=== PATIENT | female | born 1995 | race Hispanic/Latino ===

== ENCOUNTER 2021-08-22 19:25 | Inpatient (IN) | payer BC ==
[2021-08-22 21:36] LABS: Hematocrit 45.6 % (30.3-42.9); Hemoglobin 15.4 gm/dl (10.1-14.3); Mean Corpuscular HGB Conc 34 % (30-34); Mean Corpuscular Volume 94 fl (79-97); Platelet Count 265 K/mm3 (140-440); Red Blood Count 4.86 M/mm3 (3.65-5.03); Red Cell Distribution Width 14.2 % (13.2-15.2)
[2021-08-22 21:51] LABS: Alanine Aminotransferase 23 units/L (7-56); Albumin 4.6 g/dL (3.9-5); BUN/Creatinine Ratio 13; Blood Urea Nitrogen 10 mg/dL (7-17); Calcium 9.9 mg/dL (8.4-10.2); Hemolysis Index 7
[2021-08-22] MEDS ORDERED: dexAMETHasone 4 MG/ML VIAL IV ONE (22:12)
[2021-08-22] MEDS ORDERED: ONDANSETRON 4 MG/2 ML INJ IV ONE (22:12)
[2021-08-22] MEDS ORDERED: FAMOTIDINE 20 MG/2 ML INJ IV ONE (22:12)
[2021-08-22] MEDS ORDERED: MORPHINE 4 MG/1 ML INJ IV ONE (22:12)
[2021-08-22] MEDS ORDERED: SODIUM CHLORIDE 0.9% 1000 ML 1,000 ML IV ONE (22:13)
[2021-08-22 22:17] LABS: Basophils % (Manual) 0 % (0.0-1.8); Eosinophils % (Manual) 0 % (0.0-4.3); RBC Morphology Normal; Total Cells Counted 100
--- NOTE | 2021-08-22 23:18 | Cat Scan Report ---
CT ABDOMEN AND PELVIS WITH CONTRAST INDICATION / CLINICAL INFORMATION: abdoinal pain per pt, having R sided abdominal pain with emesis an d diarrhea. TECHNIQUE: Axial CT images were obtained through the abdomen and pelvis after IV contrast. All CT sc ans at this location are performed using CT dose reduction for ALARA by means of automated exposure c ontrol. COMPARISON: None available. FINDINGS: LOWER CHEST: No significant abnormality. LIVER: No significant abnormality. GALLBLADDER: No significant abnormality. BILE DUCTS: No significant abnormality. PANCREAS: No significant abnormality. SPLEEN: No significant abnormality. ADRENALS: No significant abnormality. RIGHT KIDNEY / URETER: No significant abnormality. LEFT KIDNEY / URETER: No significant abnormality. STOMACH / SMALL BOWEL: No significant abnormality. COLON: Submucosal fat at the right and transverse colons can be associated with chronic inflammation. Mild adjacent inflammation. APPENDIX: Generalized. PERITONEUM: Mild fluid adjacent to the right ovary. No free air. No fluid collection. LYMPH NODES: No significant adenopathy. VASCULAR STRUCTURES: No significant abnormality. URINARY BLADDER: No significant abnormality. REPRODUCTIVE ORGANS: No significant abnormality. ADDITIONAL FINDINGS: None. SKELETAL SYSTEM: No significant abnormality. IMPRESSION: 1. Minute submucosal fat at the right and transverse colons can be associated with chronic colonic in flammatory change. Mild adjacent inflammation suggests superimposed inflammation. 2. Mild fluid adjacent to the right ovary. 3. Appendix not visualized. Signer Name: Orlando Montemayor MD Signed: 08/22/2021 11:14 PM Workstation Name: [id number]
[2021-08-22 23:58] LABS: Bilirubin,Urine NEG (Negative); Blood,Urine MOD (Negative); Color,Urine Yellow (Yellow); Mucus,Urine 2+ /HPF; Protein,Urine <15 mg/dL mg/dL (Negative); Urobilinogen,Urine < 2.0 mg/dL (<2.0)
[2021-08-23 00:46] LABS: Hematocrit 42.3 % (30.3-42.9); Hemoglobin 13.7 gm/dl (10.1-14.3); Mean Corpuscular HGB Conc 33 % (30-34); Mean Corpuscular Volume 95 fl (79-97); Platelet Count 212 K/mm3 (140-440); Red Blood Count 4.45 M/mm3 (3.65-5.03); Red Cell Distribution Width 13.8 % (13.2-15.2)
[2021-08-23] MEDS ORDERED: PIPERACILLIN/TAZOBACTAM 3.375 3.375 GM/50 ML BAG IV ONE (02:38)
--- NOTE | 2021-08-23 02:52 | Emergency Department Report ---
ED Abdominal Pain HPI - General Chief Complaint: Abdominal Pain Stated Complaint: SEVERE ABDOMINAL PAIN, N/V Time Seen by Provider: 08/22/21 22:09 Source: patient Mode of arrival: Ambulatory Limitations: No Limitations - History of Present Illness Initial Comments: 26-year-old female with no significant past medical history reports to the ER with complaints of abdominal pain near her umbilicus that started yesterday around 5:00 PM along with vomiting and diarrhea. Patient also states to have allergic reaction to unknown source that caused her to sneeze and have hives, patient took some Benadryl. No shortness of breath or chest pain reported. No known drug allergies. Patient is actively vomiting during initial assessment. Patient reports no other acute signs and symptoms at this moment. Patient reports her her pain is 10 out of 10. Patient denies blood in her diarrhea. Patient reports that she still has her gallbladder and appendix. Severity scale (0 -10): 8 - Related Data Allergies Allergy/AdvReac Type Severity Reaction Status Date / Time No Known Allergies Allergy Verified 08/22/21 21:10 ED Review of Systems ROS: Stated complaint: SEVERE ABDOMINAL PAIN, N/V Other details as noted in HPI Constitutional: denies: chills, fever Eyes: denies: eye pain, eye discharge, vision change ENT: denies: ear pain, throat pain Respiratory: denies: cough, shortness of breath, wheezing Cardiovascular: denies: chest pain, palpitations Endocrine: no symptoms reported Gastrointestinal: abdominal pain, nausea, vomiting, diarrhea. denies: hematemesis, melena Genitourinary: denies: urgency, dysuria, discharge Musculoskeletal: denies: back pain, joint swelling, arthralgia Skin: rash. denies: lesions Neurological: denies: headache, weakness, paresthesias Psychiatric: denies: anxiety, depression Hematological/Lymphatic: denies: easy bleeding, easy bruising ED Past Medical Hx - Past Medical History Previous Medical History?: No ED Physical Exam - General Limitations: No Limitations General appearance: alert, in no apparent distress - Head Head exam: Present: atraumatic, normocephalic - Eye Eye exam: Present: normal appearance - ENT ENT exam: Present: mucous membranes moist - Neck Neck exam: Present: normal inspection - Respiratory Respiratory exam: Present: normal lung sounds bilaterally. Absent: respiratory distress - Cardiovascular Cardiovascular Exam: Present: regular rate, normal rhythm. Absent: systolic murmur, diastolic murmur, rubs, gallop - GI/Abdominal GI/Abdominal exam: Present: soft, tenderness, normal bowel sounds. Absent: rebound, rigid, organomegaly, mass, pulsatile mass - Expanded GI/Abdominal Exam Expanded GI/Abdominal exam: Absent: Page's sign - Extremities Exam Extremities exam: Present: normal inspection - Back Exam Back exam: Present: normal inspection - Neurological Exam Neurological exam: Present: alert, oriented X3 - Psychiatric Psychiatric exam: Present: normal affect, normal mood - Skin Skin exam: Present: warm, dry, intact, normal color. Absent: rash ED Course Vital Signs 08/22/21 08/23/21 08/23/21 19:52 02:32 02:36 Temperature 98.0 F Pulse Rate 88 80 Respiratory 18 14 Rate Blood Pressure 141/89 Blood Pressure 114/62 [Left] O2 Sat by Pulse 98 93 100 Oximetry 08/23/21 08/23/21 08/23/21 03:00 03:30 04:00 Temperature Pulse Rate Respiratory Rate Blood Pressure 118/64 111/62 98/53 Blood Pressure [Left] O2 Sat by Pulse 96 97 97 Oximetry - Consultations Consultation #1: 08/23/21 02:[address] SALAZAR, for hospital admission for bacteremia with unknown source. ED Medical Decision Making - Lab Data Result diagrams: 08/23/21 00:20 08/22/21 21:13 - Radiology Data CT abdominal pelvis IMPRESSION: 1. Minute submucosal fat at the right and transverse colons can be associated with chronic colonic inflammatory change. Mild adjacent inflammation suggests superimposed inflammation. 2. Mild fluid adjacent to the right ovary. 3. Appendix not visualized. - Medical Decision Making 18-year-old female no significant past medical history reports to ER with abdominal pain any nausea vomiting and diarrhea. Physical exam shows right lower quadrant abdominal pain tenderness with no rebound tenderness noted right upper quadrant pain tenderness with no Page's signs noted. No epigastric pain noted. Initial WBC was 27 repeat was collected with a new result of 21.6 , blood cultures were collected CMP with no acute process noted. UA negative for no acute process, lipase negative Ultrasoundnegative no acute process noted. CT abdomen pelvis with contrast IMPRESSION: 1. Minute submucosal fat at the right and transverse colons can be associated with chronic colonic inflammatory change. Mild adjacent inflammation suggests superimposed inflammation. 2. Mild fluid adjacent to the right ovary. 3. Appendix not visualized. Paged [facility] and spoke with Dr. SALAZAR around 2:32 AM, for admission to hospital due to unknown source of bacteremia. Orders for Zosyn broad-spectrum antibiotics were ordered to be started on patient. Patient made aware of her need for admission sent to the hospital due to her elevated white count with unknown source of infection. Patient agrees with plan of care and verbalizes understanding. This case was discussed with Dr. Wilson, ER attending.. Vital Signs 08/22/21 08/23/21 08/23/21 19:52 02:32 02:36 Temperature 98.0 F Pulse Rate 88 80 Respiratory 18 14 Rate Blood Pressure 141/89 Blood Pressure 114/62 [Left] O2 Sat by Pulse 98 93 100 Oximetry 08/23/21 08/23/21 08/23/21 03:00 03:30 04:00 Temperature Pulse Rate Respiratory Rate Blood Pressure 118/64 111/62 98/53 Blood Pressure [Left] O2 Sat by Pulse 96 97 97 Oximetry Lab Results 08/22/21 08/22/21 08/22/21 Range/Units 21:13 21:13 21:13 WBC 27.0 H (4.5-11.0) K/mm3 RBC 4.86 (3.65-5.03) M/mm3 Hgb 15.4 H (10.1-14.3) gm/dl Hct 45.6 H (30.3-42.9) % MCV 94 (79-97) fl MCH 32 (28-32) pg MCHC 34 (30-34) % RDW 14.2 (13.2-15.2) % Plt Count 265 (140-440) K/mm3 Add Manual Diff Complete Total Counted 100 Seg Neutrophils % Seg Neuts % (Manual) 81.0 H (40.0-70.0) % Band Neutrophils % 0 % Lymphocytes % (Manual) 13.0 L (13.4-35.0) % Reactive Lymphs % (Man) 0 % Monocytes % (Manual) 6.0 (0.0-7.3) % Eosinophils % (Manual) 0 (0.0-4.3) % Basophils % (Manual) 0 (0.0-1.8) % Metamyelocytes % 0 % Myelocytes % 0 % Promyelocytes % 0 % Blast Cells % 0 % Nucleated RBC % Not Reportable Seg Neutrophils # Man 21.9 H (1.8-7.7) K/mm3 Band Neutrophils # 0.0 K/mm3 Lymphocytes # (Manual) 3.5 (1.2-5.4) K/mm3 Abs React Lymphs (Man) 0.0 K/mm3 Monocytes # (Manual) 1.6 H (0.0-0.8) K/mm3 Eosinophils # (Manual) 0.0 (0.0-0.4) K/mm3 Basophils # (Manual) 0.0 (0.0-0.1) K/mm3 Metamyelocytes # 0.0 K/mm3 Myelocytes # 0.0 K/mm3 Promyelocytes # 0.0 K/mm3 Blast Cells # 0.0 K/mm3 WBC Morphology Not Reportable Hypersegmented Neuts Not Reportable Hyposegmented Neuts Not Reportable Hypogranular Neuts Not Reportable Smudge Cells Not Reportable Toxic Granulation Not Reportable Toxic Vacuolation Not Reportable Dohle Bodies Not Reportable Pelger-Huet Anomaly Not Reportable Wilberto Rods Not Reportable Platelet Estimate Not Reportable Clumped Platelets Not Reportable Plt Clumps, EDTA Not Reportable Large Platelets Not Reportable Giant Platelets Not Reportable Platelet Satelliting Not Reportable Plt Morphology Comment Not Reportable RBC Morphology Normal Dimorphic RBCs Not Reportable Polychromasia Not Reportable Hypochromasia Not Reportable Poikilocytosis Not Reportable Anisocytosis Not Reportable Microcytosis Not Reportable Macrocytosis Not Reportable Spherocytes Not Reportable Pappenheimer Bodies Not Reportable Sickle Cells Not Reportable Target Cells Not Reportable Tear Drop Cells Not Reportable Ovalocytes Not Reportable Helmet Cells Not Reportable [place] Bodies Not Reportable [place] Rings Not Reportable [place] Cells Not Reportable Bite Cells Not Reportable Crenated Cell Not Reportable Elliptocytes Not Reportable Acanthocytes (Spur) Not Reportable Rouleaux Not Reportable Hemoglobin C Crystals Not Reportable Schistocytes Not Reportable Malaria parasites Not Reportable Gregor Bodies Not Reportable Hem Pathologist Commnt No Sodium 143 (137-145) mmol/L Potassium 4.1 (3.6-5.0) mmol/L Chloride 106.9 (98-107) mmol/L Carbon Dioxide 20 L (22-30) mmol/L Anion Gap 20 mmol/L BUN 10 (7-17) mg/dL Creatinine 0.8 (0.6-1.2) mg/dL Estimated GFR > 60 ml/min BUN/Creatinine Ratio 13 % Glucose 109 H (65-100) mg/dL Calcium 9.9 (8.4-10.2) mg/dL Total Bilirubin 0.50 (0.1-1.2) mg/dL AST 19 (5-40) units/L ALT 23 (7-56) units/L Alkaline Phosphatase 82 (35-129) units/L Total Protein 7.6 (6.3-8.2) g/dL Albumin 4.6 (3.9-5) g/dL Albumin/Globulin Ratio 1.5 % Lipase (13-60) units/L HCG, Qual Negative (Negative) Urine Color (Yellow) Urine Turbidity (Clear) Urine pH (5.0-7.0) Ur Specific [place] (1.003-1.030) Urine Protein (Negative) mg/dL Urine Glucose (UA) (Negative) mg/dL Urine Ketones (Negative) mg/dL Urine Blood (Negative) Urine Nitrite (Negative) Urine Bilirubin (Negative) Urine Urobilinogen (<2.0) mg/dL Ur Leukocyte Esterase (Negative) Urine WBC (Auto) (0.0-6.0) /HPF Urine RBC (Auto) (0.0-6.0) /HPF U Epithel Cells (Auto) (0-13.0) /HPF Urine Mucus /HPF 08/22/21 08/22/21 08/23/21 Range/Units 21:13 23:40 00:20 WBC (4.5-11.0) K/mm3 RBC (3.65-5.03) M/mm3 Hgb (10.1-14.3) gm/dl Hct (30.3-42.9) % MCV (79-97) fl MCH (28-32) pg MCHC (30-34) % RDW (13.2-15.2) % Plt Count (140-440) K/mm3 Add Manual Diff Total Counted Seg Neutrophils % Seg Neuts % (Manual) (40.0-70.0) % Band Neutrophils % % Lymphocytes % (Manual) (13.4-35.0) % Reactive Lymphs % (Man) % Monocytes % (Manual) (0.0-7.3) % Eosinophils % (Manual) (0.0-4.3) % Basophils % (Manual) (0.0-1.8) % Metamyelocytes % % Myelocytes % % Promyelocytes % % Blast Cells % % Nucleated RBC % Seg Neutrophils # Man (1.8-7.7) K/mm3 Band Neutrophils # K/mm3 Lymphocytes # (Manual) (1.2-5.4) K/mm3 Abs React Lymphs (Man) K/mm3 Monocytes # (Manual) (0.0-0.8) K/mm3 Eosinophils # (Manual) (0.0-0.4) K/mm3 Basophils # (Manual) (0.0-0.1) K/mm3 Metamyelocytes # K/mm3 Myelocytes # K/mm3 Promyelocytes # K/mm3 Blast Cells # K/mm3 WBC Morphology Hypersegmented Neuts Hyposegmented Neuts Hypogranular Neuts Smudge Cells Toxic Granulation Toxic Vacuolation Dohle Bodies Pelger-Huet Anomaly Wilberto Rods Platelet Estimate Clumped Platelets Plt Clumps, EDTA Large Platelets Giant Platelets Platelet Satelliting Plt Morphology Comment RBC Morphology Dimorphic RBCs Polychromasia Hypochromasia Poikilocytosis Anisocytosis Microcytosis Macrocytosis Spherocytes Pappenheimer Bodies Sickle Cells Target Cells Tear Drop Cells Ovalocytes Helmet Cells [place]err[place] Bodies [place] Rings Charlie Cells Bite Cells Crenated Cell Elliptocytes Acanthocytes (Spur) Rouleaux Hemoglobin C Crystals Schistocytes Malaria parasites Gregor Bodies Hem Pathologist Commnt Sodium (137-145) mmol/L Potassium (3.6-5.0) mmol/L Chloride (98-107) mmol/L Carbon Dioxide (22-30) mmol/L Anion Gap mmol/L BUN (7-17) mg/dL Creatinine (0.6-1.2) mg/dL Estimated GFR ml/min BUN/Creatinine Ratio % Glucose (65-100) mg/dL Calcium (8.4-10.2) mg/dL Total Bilirubin (0.1-1.2) mg/dL AST (5-40) units/L ALT (7-56) units/L Alkaline Phosphatase (35-129) units/L Total Protein (6.3-8.2) g/dL Albumin (3.9-5) g/dL Albumin/Globulin Ratio % Lipase 23 28 (13-60) units/L HCG, Qual (Negative) Urine Color Yellow (Yellow) Urine Turbidity Clear (Clear) Urine pH 6.0 (5.0-7.0) Ur Specific [place] 1.060 H (1.003-1.030) Urine Protein <15 mg/dl (Negative) mg/dL Urine Glucose (UA) Neg (Negative) mg/dL Urine Ketones 20 (Negative) mg/dL Urine Blood Mod (Negative) Urine Nitrite Neg (Negative) Urine Bilirubin Neg (Negative) Urine Urobilinogen < 2.0 (<2.0) mg/dL Ur Leukocyte Esterase Neg (Negative) Urine WBC (Auto) 1.0 (0.0-6.0) /HPF Urine RBC (Auto) 1.0 (0.0-6.0) /HPF U Epithel Cells (Auto) 2.0 (0-13.0) /HPF Urine Mucus 2+ /HPF /15/ Range/Units 00:20 WBC 21.6 H (4.5-11.0) K/mm3 RBC 4.45 (3.65-5.03) M/mm3 Hgb 13.7 (10.1-14.3) gm/dl Hct 42.3 (30.3-42.9) % MCV 95 (79-97) fl MCH 31 (28-32) pg MCHC 33 (30-34) % RDW 13.8 (13.2-15.2) % Plt Count 212 (140-440) K/mm3 Add Manual Diff Complete Total Counted 100 Seg Neutrophils % [place] Seg Neuts % (Manual) 92.0 H (40.0-70.0) % Band Neutrophils % 0 % Lymphocytes % (Manual) 5.0 L (13.4-35.0) % Reactive Lymphs % (Man) 0 % Monocytes % (Manual) 3.0 (0.0-7.3) % Eosinophils % (Manual) 0 (0.0-4.3) % Basophils % (Manual) 0 (0.0-1.8) % Metamyelocytes % 0 % Myelocytes % 0 % Promyelocytes % 0 % Blast Cells % 0 % Nucleated RBC % Not Reportable Seg Neutrophils # Man 19.9 H (1.8-7.7) K/mm3 Band Neutrophils # 0.0 K/mm3 Lymphocytes # (Manual) 1.1 L (1.2-5.4) K/mm3 Abs React Lymphs (Man) 0.0 K/mm3 Monocytes # (Manual) 0.6 (0.0-0.8) K/mm3 Eosinophils # (Manual) 0.0 (0.0-0.4) K/mm3 Basophils # (Manual) 0.0 (0.0-0.1) K/mm3 Metamyelocytes # 0.0 K/mm3 Myelocytes # 0.0 K/mm3 Promyelocytes # 0.0 K/mm3 Blast Cells # 0.0 K/mm3 WBC Morphology Not Reportable Hypersegmented Neuts Not Reportable Hyposegmented Neuts Not Reportable Hypogranular Neuts Not Reportable Smudge Cells Not Reportable Toxic Granulation Not Reportable Toxic Vacuolation Not Reportable Dohle Bodies Not Reportable Pelger-Huet Anomaly Not Reportable Wilberto Rods Not Reportable Platelet Estimate Not Reportable Clumped Platelets Not Reportable Plt Clumps, EDTA Not Reportable Large Platelets Not Reportable Giant Platelets Not Reportable Platelet Satelliting Not Reportable Plt Morphology Comment Not Reportable RBC Morphology Normal Dimorphic RBCs Not Reportable Polychromasia Not Reportable Hypochromasia Not Reportable Poikilocytosis Not Reportable Anisocytosis Not Reportable Microcytosis Not Reportable Macrocytosis Not Reportable Spherocytes Not Reportable Pappenheimer Bodies Not Reportable Sickle Cells Not Reportable Target Cells Not Reportable Tear Drop Cells Not Reportable Ovalocytes Not Reportable Helmet Cells Not Reportable [place] Bodies Not Reportable [place] Rings Not Reportable [place] Cells Not Reportable Bite Cells Not Reportable Crenated Cell Not Reportable Elliptocytes Not Reportable Acanthocytes (Spur) Not Reportable Rouleaux Not Reportable Hemoglobin C Crystals Not Reportable Schistocytes Not Reportable Malaria parasites Not Reportable Gregor Bodies Not Reportable Hem Pathologist Commnt No Sodium (137-145) mmol/L Potassium (3.6-5.0) mmol/L Chloride (98-107) mmol/L Carbon Dioxide (22-30) mmol/L Anion Gap mmol/L BUN (7-17) mg/dL Creatinine (0.6-1.2) mg/dL Estimated GFR ml/min BUN/Creatinine Ratio % Glucose (65-100) mg/dL Calcium (8.4-10.2) mg/dL Total Bilirubin (0.1-1.2) mg/dL AST (5-40) units/L ALT (7-56) units/L Alkaline Phosphatase (35-129) units/L Total Protein (6.3-8.2) g/dL Albumin (3.9-5) g/dL Albumin/Globulin Ratio % Lipase (13-60) units/L HCG, Qual (Negative) Urine Color (Yellow) Urine Turbidity (Clear) Urine pH (5.0-7.0) Ur Specific [place] (1.003-1.030) Urine Protein (Negative) mg/dL Urine Glucose (UA) (Negative) mg/dL Urine Ketones (Negative) mg/dL Urine Blood (Negative) Urine Nitrite (Negative) Urine Bilirubin (Negative) Urine Urobilinogen (<2.0) mg/dL Ur Leukocyte Esterase (Negative) Urine WBC (Auto) (0.0-6.0) /HPF Urine RBC (Auto) (0.0-6.0) /HPF U Epithel Cells (Auto) (0-13.0) /HPF Urine Mucus /HPF Critical care attestation.: If time is entered above; I have spent that time in minutes in the direct care of this critically ill patient, excluding procedure time. ED Disposition Clinical Impression: Bacteremia Disposition: 09 ADMITTED INPATIENT Is pt being admited?: Yes Does the pt Need Aspirin: No Condition: Stable
--- NOTE | 2021-08-23 03:00 | Ultrasound Report ---
ULTRASOUND ABDOMEN, LIMITED INDICATION / CLINICAL INFORMATION: right upper pain with N/V. COMPARISON: None available. FINDINGS: PANCREAS: Visualized portion shows no significant abnormality. LIVER: No significant abnormality. Normal hepatopedal blood flow in the main portal vein. GALLBLADDER: No significant abnormality. BILE DUCTS: No significant abnormality. Common bile duct measures 2 mm. FREE FLUID: None. ADDITIONAL FINDINGS: None. IMPRESSION: Negative for gallstones or biliary dilatation. Signer Name: Orlando Montemayor MD Signed: 08/23/2021 2:55 AM Workstation Name: [id number]
[2021-08-23] MEDS ORDERED: MORPHINE 4 MG/1 ML INJ IV ONE (03:12)
[2021-08-23 03:19] LABS: Basophils % (Manual) 0 % (0.0-1.8); Eosinophils % (Manual) 0 % (0.0-4.3); RBC Morphology Normal; Total Cells Counted 100
[2021-08-23] MEDS ORDERED: ACETAMINOPHEN 325 MG TAB PO PRN (04:16)
[2021-08-23] MEDS ORDERED: ALBUTEROL 2.5 MG/3 ML NEBU IH PRN (04:16)
[2021-08-23] MEDS ORDERED: MORPHINE 4 MG/1 ML INJ IV PRN (04:16)
[2021-08-23] MEDS ORDERED: MORPHINE 2 MG/1 ML INJ IV PRN (04:16)
[2021-08-23] MEDS ORDERED: ONDANSETRON 4 MG/2 ML INJ IV PRN (04:16)
--- NOTE | 2021-08-23 04:23 | History and Physical Report ---
History of Present Illness Date of examination: 08/23/21 Date of admission: 08/23/21 Chief complaint: Abdominal pain History of present illness: 26-year-old female with no significant past medical history reports to the ER with complaints of abdominal pain near her umbilicus that started yesterday around 5:00 PM along with vomiting and diarrhea. Patient also states to have allergic reaction to unknown source that caused her to sneeze and have hives, patient took some Benadryl. No shortness of breath or chest pain reported. No known drug allergies. Patient is actively vomiting during initial assessment. Patient reports no other acute signs and symptoms at this moment. Patient reports her her pain is 10 out of 10. Patient denies blood in her diarrhea. Patient reports that she still has her gallbladder and appendix. In the emergency room patient is found to have WBC of 21.6, CT scan of the abdomen and pelvis showed 1. Minute submucosal fat at the right and transverse colons can be associated with chronic colonic inflammatory change. Mild adjacent inflammation suggests superimposed inflammation. 2. Mild fluid adjacent to the right ovary. 3. Appendix not visualized. Past History Past Surgical History: No surgical history Social history: no significant social history Family history: no significant family history Medications and Allergies Allergies Allergy/AdvReac Type Severity Reaction Status Date / Time No Known Allergies Allergy Verified 08/22/21 21:10 Review of Systems All systems: negative Gastrointestinal: abdominal pain, nausea, vomiting, diarrhea Exam - Constitutional Vitals: Temp Pulse Resp BP Pulse Ox 98.0 F 80 14 114/62 100 08/22/21 19:52 08/23/21 02:36 08/23/21 02:36 08/23/21 02:36 08/23/21 02:36 General appearance: Present: no acute distress, well-nourished - EENT Eyes: Present: PERRL ENT: hearing intact, clear oral mucosa - Neck Neck: Present: supple, normal ROM - Respiratory Respiratory effort: normal Respiratory: bilateral: CTA - Cardiovascular Heart Sounds: Present: S1 & S2. Absent: rub, click - Extremities Extremities: pulses symmetrical, No edema Peripheral Pulses: within normal limits - Abdominal General gastrointestinal: Present: soft, non-tender, non-distended, normal bowel sounds Female genitourinary: Present: normal - Integumentary Integumentary: Present: clear, warm, dry - Musculoskeletal Musculoskeletal: gait normal, strength equal bilaterally - Psychiatric Psychiatric: appropriate mood/affect, intact judgment & insight - Neurologic Neurologic: CNII-XII intact, moves all extremities Results - Labs CBC & Chem 7: 08/23/21 00:20 08/22/21 21:13 Labs: Laboratory Last Values WBC 21.6 K/mm3 (4.5-11.0) H 08/23/21 00:20 RBC 4.45 M/mm3 (3.65-5.03) 08/23/21 00:20 Hgb 13.7 gm/dl (10.1-14.3) 08/23/21 00:20 Hct 42.3 % (30.3-42.9) 08/23/21 00:20 MCV 95 fl (79-97) 08/23/21 00:20 MCH 31 pg (28-32) 08/23/21 00:20 MCHC 33 % (30-34) 08/23/21 00:20 RDW 13.8 % (13.2-15.2) 08/23/21 00:20 Plt Count 212 K/mm3 (140-440) 08/23/21 00:20 Add Manual Diff Complete 08/23/21 00:20 Total Counted 100 08/23/21 00:20 Seg Neutrophils % Bumper Operator 08/23/21 00:20 Seg Neuts % (Manual) 92.0 % (40.0-70.0) H 08/23/21 00:20 Band Neutrophils % 0 % 08/23/21 00:20 Lymphocytes % (Manual) 5.0 % (13.4-35.0) L 08/23/21 00:20 Reactive Lymphs % (Man) 0 % 08/23/21 00:20 Monocytes % (Manual) 3.0 % (0.0-7.3) 08/23/21 00:20 Eosinophils % (Manual) 0 % (0.0-4.3) 08/23/21 00:20 Basophils % (Manual) 0 % (0.0-1.8) 08/23/21 00:20 Metamyelocytes % 0 % 08/23/21 00:20 Myelocytes % 0 % 08/23/21 00:20 Promyelocytes % 0 % 08/23/21 00:20 Blast Cells % 0 % 08/23/21 00:20 Nucleated RBC % Not Reportable 08/23/21 00:20 Seg Neutrophils # Man 19.9 K/mm3 (1.8-7.7) H 08/23/21 00:20 Band Neutrophils # 0.0 K/mm3 08/23/21 00:20 Lymphocytes # (Manual) 1.1 K/mm3 (1.2-5.4) L 08/23/21 00:20 Abs React Lymphs (Man) 0.0 K/mm3 08/23/21 00:20 Monocytes # (Manual) 0.6 K/mm3 (0.0-0.8) 08/23/21 00:20 Eosinophils # (Manual) 0.0 K/mm3 (0.0-0.4) 08/23/21 00:20 Basophils # (Manual) 0.0 K/mm3 (0.0-0.1) 08/23/21 00:20 Metamyelocytes # 0.0 K/mm3 08/23/21 00:20 Myelocytes # 0.0 K/mm3 08/23/21 00:20 Promyelocytes # 0.0 K/mm3 08/23/21 00:20 Blast Cells # 0.0 K/mm3 08/23/21 00:20 WBC Morphology Not Reportable 08/23/21 00:20 Hypersegmented Neuts Not Reportable 08/23/21 00:20 Hyposegmented Neuts Not Reportable 08/23/21 00:20 Hypogranular Neuts Not Reportable 08/23/21 00:20 Smudge Cells Not Reportable 08/23/21 00:20 Toxic Granulation Not Reportable 08/23/21 00:20 Toxic Vacuolation Not Reportable 08/23/21 00:20 Dohle Bodies Not Reportable 08/23/21 00:20 Pelger-Huet Anomaly Not Reportable 08/23/21 00:20 Wilberto Rods Not Reportable 08/23/21 00:20 Platelet Estimate Not Reportable 08/23/21 00:20 Clumped Platelets Not Reportable 08/23/21 00:20 Plt Clumps, EDTA Not Reportable 08/23/21 00:20 Large Platelets Not Reportable 08/23/21 00:20 Giant Platelets Not Reportable 08/23/21 00:20 Platelet Satelliting Not Reportable 08/23/21 00:20 Plt Morphology Comment Not Reportable 08/23/21 00:20 RBC Morphology Normal 08/23/21 00:20 Dimorphic RBCs Not Reportable 08/23/21 00:20 Polychromasia Not Reportable 08/23/21 00:20 Hypochromasia Not Reportable 08/23/21 00:20 Poikilocytosis Not Reportable 08/23/21 00:20 Anisocytosis Not Reportable 08/23/21 00:20 Microcytosis Not Reportable 08/23/21 00:20 Macrocytosis Not Reportable 08/23/21 00:20 Spherocytes Not Reportable 08/23/21 00:20 Pappenheimer Bodies Not Reportable 08/23/21 00:20 Sickle Cells Not Reportable 08/23/21 00:20 Target Cells Not Reportable 08/23/21 00:20 Tear Drop Cells Not Reportable 08/23/21 00:20 Ovalocytes Not Reportable 08/23/21 00:20 Helmet Cells Not Reportable 08/23/21 00:20 Cerrato-Leando Bodies Not Reportable 08/23/21 00:20 [place] Rings Not Reportable 08/23/21 00:20 Charlie Cells Not Reportable 08/23/21 00:20 Bite Cells Not Reportable 08/23/21 00:20 Crenated Cell Not Reportable 08/23/21 00:20 Elliptocytes Not Reportable 08/23/21 00:20 Acanthocytes (Spur) Not Reportable 08/23/21 00:20 Rouleaux Not Reportable 08/23/21 00:20 Hemoglobin C Crystals Not Reportable 08/23/21 00:20 Schistocytes Not Reportable 08/23/21 00:20 Malaria parasites Not Reportable 08/23/21 00:20 Gregor Bodies Not Reportable 08/23/21 00:20 Hem Pathologist Commnt No 08/23/21 00:20 Sodium 143 mmol/L (137-145) 08/22/21 21:13 Potassium 4.1 mmol/L (3.6-5.0) 08/22/21 21:13 Chloride 106.9 mmol/L (98-107) 08/22/21 21:13 Carbon Dioxide 20 mmol/L (22-30) L 08/22/21 21:13 Anion Gap 20 mmol/L 08/22/21 21:13 BUN 10 mg/dL (7-17) 08/22/21 21:13 Creatinine 0.8 mg/dL (0.6-1.2) 08/22/21 21:13 Estimated GFR > 60 ml/min 08/22/21 21:13 BUN/Creatinine Ratio 13 % 08/22/21 21:13 Glucose 109 mg/dL (65-100) H 08/22/21 21:13 Calcium 9.9 mg/dL (8.4-10.2) 08/22/21 21:13 Total Bilirubin 0.50 mg/dL (0.1-1.2) 08/22/21 21:13 AST 19 units/L (5-40) 08/22/21 21:13 ALT 23 units/L (7-56) 08/22/21 21:13 Alkaline Phosphatase 82 units/L (35-129) 08/22/21 21:13 Total Protein 7.6 g/dL (6.3-8.2) 08/22/21 21:13 Albumin 4.6 g/dL (3.9-5) 08/22/21 21:13 Albumin/Globulin Ratio 1.5 % 08/22/21 21:13 Lipase 28 units/L (13-60) 08/23/21 00:20 HCG, Qual Negative (Negative) 08/22/21 21:13 Urine Color Yellow (Yellow) 08/22/21 23:40 Urine Turbidity Clear (Clear) 08/22/21 23:40 Urine pH 6.0 (5.0-7.0) 08/22/21 23:40 Ur Specific [place] 1.060 (1.003-1.030) H 08/22/21 23:40 Urine Protein <15 mg/dl mg/dL (Negative) 08/22/21 23:40 Urine Glucose (UA) Neg mg/dL (Negative) 08/22/21 23:40 Urine Ketones 20 mg/dL (Negative) 08/22/21 23:40 Urine Blood Mod (Negative) 08/22/21 23:40 Urine Nitrite Neg (Negative) 08/22/21 23:40 Urine Bilirubin Neg (Negative) 08/22/21 23:40 Urine Urobilinogen < 2.0 mg/dL (<2.0) 08/22/21 23:40 Ur Leukocyte Esterase Neg (Negative) 08/22/21 23:40 Urine WBC (Auto) 1.0 /HPF (0.0-6.0) 08/22/21 23:40 Urine RBC (Auto) 1.0 /HPF (0.0-6.0) 08/22/21 23:40 U Epithel Cells (Auto) 2.0 /HPF (0-13.0) 08/22/21 23:40 Urine Mucus 2+ /HPF 08/22/21 23:40 Microbiology: Microbiology 08/23/21 00:13 Peripheral/Venous Blood Culture - Preliminary Culture in Progress 08/23/21 00:20 Peripheral/Venous Blood Culture - Preliminary Culture in Progress - Imaging and Cardiology CT scan - abdomen: report reviewed Assessment and Plan VTE prophylaxis?: Chemical Plan of care discussed with patient/family: Yes - Patient Problems (1) Abdominal pain Current Visit: Yes Status: Acute Plan to address problem: Admit the patient to the medical floor. NPO. D5 half-normal saline at the rate of 100 cc/h. Zosyn 4.5 g IV every 8 hours. Will consult GI for evaluation. Recheck CBC BMP in the morning (2) Colitis Current Visit: Yes Status: Acute Plan to address problem: Zosyn 4.5 g IV every 8 hours. Will consult GI for evaluation. Recheck CBC BMP in the morning (3) Leukocytosis Current Visit: Yes Status: Acute Plan to address problem: Zosyn 4.5 g IV every 8 hours. We will do the blood culture. Recheck CBC BMP in the morning (4) Nausea & vomiting Current Visit: Yes Status: Acute Plan to address problem: NPO. D5 half-normal saline at the rate of 100 cc/h. Pepcid 20 mg IV every 12 hours. Zofran 4 mg IV every 6 hours as needed (5) DVT prophylaxis Current Visit: Yes Status: Acute Plan to address problem: Heparin 5000 units subcu every 12 hours for DVT prophylaxis. Pepcid 20 mg IV every 12 hours for GI prophylaxis. Patient is a full code
[2021-08-23] MEDS ORDERED: D5W/0.45% NACL 1,000 ML IV SCH (05:00)
[2021-08-23] MEDS ORDERED: HEPARIN 5,000 UNIT/1 ML VIAL SUB-Q SCH (10:00)
[2021-08-23] MEDS ORDERED: PIPERACIL/TAZOBACTA 4.5/NS 100 4.5 GM/100 ML VIAL IV SCH (10:00)
[2021-08-23] MEDS ORDERED: FAMOTIDINE 20 MG/2 ML INJ IV SCH (10:00)
[2021-08-23] MEDS: IPRATROPIUM/ALBUTEROL SULFATE 3 ML AMPUL.NEB IH SCH ×2 (10:31→16:13)
[2021-08-23 14:15] VITALS: BP 121/52
--- NOTE | 2021-08-23 15:39 | Gastroenterology Consultation ---
History of Present Illness - Reason for Consult Consult date: 08/23/21 abdominal pain, colitis Requesting physician: BRIANNE ARBOLEDA Past History Past Surgical History: No surgical history Social history: no significant social history Family history: no significant family history Medications and Allergies Allergies Allergy/AdvReac Type Severity Reaction Status Date / Time No Known Allergies Allergy Verified 08/22/21 21:10 Active Meds: Active Medications Acetaminophen (Acetaminophen 325 Mg Tab) 650 mg PO Q4H PRN PRN Reason: Pain MILD(1-3)/Fever >100.5/AMARO Last Admin: 08/23/21 08:09 Dose: 650 mg Albuterol (Albuterol 2.5 Mg/3 Ml Nebu) 2.5 mg IH Q3HRT PRN PRN Reason: Shortness Of Breath Albuterol/Ipratropium (Ipratropium/Albuterol Sulfate 3 Ml Ampul.Neb) 1 ampul IH Q6HRT [facility] Last Admin: 08/23/21 10:31 Dose: 1 ampul Famotidine (Famotidine 20 Mg/2 Ml Inj) 20 mg IV BID [facility] Last Admin: 08/23/21 11:02 Dose: 20 mg Heparin Sodium (Porcine) (Heparin 5,000 Unit/1 Ml Vial) 5,000 unit SUB-Q Q12HR [facility] Dextrose/Sodium Chloride (D5/0.45ns) 1,000 mls @ 100 mls/hr IV DIRECT [facility] Last Admin: 08/23/21 08:05 Dose: 100 mls/hr Piperacillin Sod/Tazobactam Sod (Zosyn/Ns 4.5gm/100ml) 4.5 gm in 100 mls @ 200 mls/hr IV Q8H [facility]; Protocol Last Admin: 08/23/21 11:00 Dose: 200 mls/hr Morphine Sulfate (Morphine 2 Mg/1 Ml Inj) 2 mg IV Q4H PRN PRN Reason: Pain, Moderate (4-6) Morphine Sulfate (Morphine 4 Mg/1 Ml Inj) 4 mg IV Q4H PRN PRN Reason: Pain , Severe (7-10) Ondansetron HCl (Ondansetron 4 Mg/2 Ml Inj) 4 mg IV Q8H PRN PRN Reason: Nausea And Vomiting Sodium Chloride (Sodium Chloride 0.9% 10 Ml Flush Syringe) 10 ml IV BID [facility] Sodium Chloride (Sodium Chloride 0.9% 10 Ml Flush Syringe) 10 ml IV PRN PRN PRN Reason: LINE FLUSH Exam - Constitutional Vital Signs: Temp Pulse Resp BP Pulse Ox 98.2 F 72 19 121/52 96 08/23/21 14:13 08/23/21 14:13 08/23/21 14:13 08/23/21 14:13 08/23/21 14:13 General appearance: no acute distress - Labs CBC & Chem 7: 08/23/21 00:20 08/22/21 21:13 Lab Results: Laboratory Results - last 24 hr 08/22/21 08/22/21 08/22/21 21:13 21:13 21:13 WBC 27.0 H RBC 4.86 Hgb 15.4 H Hct 45.6 H MCV 94 MCH 32 MCHC 34 RDW 14.2 Plt Count 265 Add Manual Diff Complete Total Counted 100 Seg Neutrophils % Seg Neuts % (Manual) 81.0 H Band Neutrophils % 0 Lymphocytes % (Manual) 13.0 L Reactive Lymphs % (Man) 0 Monocytes % (Manual) 6.0 Eosinophils % (Manual) 0 Basophils % (Manual) 0 Metamyelocytes % 0 Myelocytes % 0 Promyelocytes % 0 Blast Cells % 0 Nucleated RBC % Not Reportable Seg Neutrophils # Man 21.9 H Band Neutrophils # 0.0 Lymphocytes # (Manual) 3.5 Abs React Lymphs (Man) 0.0 Monocytes # (Manual) 1.6 H Eosinophils # (Manual) 0.0 Basophils # (Manual) 0.0 Metamyelocytes # 0.0 Myelocytes # 0.0 Promyelocytes # 0.0 Blast Cells # 0.0 WBC Morphology Not Reportable Hypersegmented Neuts Not Reportable Hyposegmented Neuts Not Reportable Hypogranular Neuts Not Reportable Smudge Cells Not Reportable Toxic Granulation Not Reportable Toxic Vacuolation Not Reportable Dohle Bodies Not Reportable Pelger-Huet Anomaly Not Reportable Wilberto Rods Not Reportable Platelet Estimate Not Reportable Clumped Platelets Not Reportable Plt Clumps, EDTA Not Reportable Large Platelets Not Reportable Giant Platelets Not Reportable Platelet Satelliting Not Reportable Plt Morphology Comment Not Reportable RBC Morphology Normal Dimorphic RBCs Not Reportable Polychromasia Not Reportable Hypochromasia Not Reportable Poikilocytosis Not Reportable Anisocytosis Not Reportable Microcytosis Not Reportable Macrocytosis Not Reportable Spherocytes Not Reportable Pappenheimer Bodies Not Reportable Sickle Cells Not Reportable Target Cells Not Reportable Tear Drop Cells Not Reportable Ovalocytes Not Reportable Helmet Cells Not Reportable Cerrato-Belt Bodies Not Reportable Macarthur Rings Not Reportable Charlie Cells Not Reportable Bite Cells Not Reportable Crenated Cell Not Reportable Elliptocytes Not Reportable Acanthocytes (Spur) Not Reportable Rouleaux Not Reportable Hemoglobin C Crystals Not Reportable Schistocytes Not Reportable Malaria parasites Not Reportable Gregor Bodies Not Reportable Hem Pathologist Commnt No Sodium 143 Potassium 4.1 Chloride 106.9 Carbon Dioxide 20 L Anion Gap 20 BUN 10 Creatinine 0.8 Estimated GFR > 60 BUN/Creatinine Ratio 13 Glucose 109 H Calcium 9.9 Total Bilirubin 0.50 AST 19 ALT 23 Alkaline Phosphatase 82 Total Protein 7.6 Albumin 4.6 Albumin/Globulin Ratio 1.5 Lipase HCG, Qual Negative Urine Color Urine Turbidity Urine pH Ur Specific [place] Urine Protein Urine Glucose (UA) Urine Ketones Urine Blood Urine Nitrite Urine Bilirubin Urine Urobilinogen Ur Leukocyte Esterase Urine WBC (Auto) Urine RBC (Auto) U Epithel Cells (Auto) Urine Mucus 08/22/21 08/22/21 08/23/21 21:13 23:40 00:20 WBC RBC Hgb Hct MCV MCH MCHC RDW Plt Count Add Manual Diff Total Counted Seg Neutrophils % Seg Neuts % (Manual) Band Neutrophils % Lymphocytes % (Manual) Reactive Lymphs % (Man) Monocytes % (Manual) Eosinophils % (Manual) Basophils % (Manual) Metamyelocytes % Myelocytes % Promyelocytes % Blast Cells % Nucleated RBC % Seg Neutrophils # Man Band Neutrophils # Lymphocytes # (Manual) Abs React Lymphs (Man) Monocytes # (Manual) Eosinophils # (Manual) Basophils # (Manual) Metamyelocytes # Myelocytes # Promyelocytes # Blast Cells # WBC Morphology Hypersegmented Neuts Hyposegmented Neuts Hypogranular Neuts Smudge Cells Toxic Granulation Toxic Vacuolation Dohle Bodies Pelger-Huet Anomaly Wilberto Rods Platelet Estimate Clumped Platelets Plt Clumps, EDTA Large Platelets Giant Platelets Platelet Satelliting Plt Morphology Comment RBC Morphology Dimorphic RBCs Polychromasia Hypochromasia Poikilocytosis Anisocytosis Microcytosis Macrocytosis Spherocytes Pappenheimer Bodies Sickle Cells Target Cells Tear Drop Cells Ovalocytes Helmet Cells Cerrato-Belt Bodies Macarthur Rings [place] Cells Bite Cells Crenated Cell Elliptocytes Acanthocytes (Spur) Rouleaux Hemoglobin C Crystals Schistocytes Malaria parasites Gregor Bodies Hem Pathologist Commnt Sodium Potassium Chloride Carbon Dioxide Anion Gap BUN Creatinine Estimated GFR BUN/Creatinine Ratio Glucose Calcium Total Bilirubin AST ALT Alkaline Phosphatase Total Protein Albumin Albumin/Globulin Ratio Lipase 23 28 HCG, Qual Urine Color Yellow Urine Turbidity Clear Urine pH 6.0 Ur Specific [place] 1.060 H Urine Protein <15 mg/dl Urine Glucose (UA) Neg Urine Ketones 20 Urine Blood Mod Urine Nitrite Neg Urine Bilirubin Neg Urine Urobilinogen < 2.0 Ur Leukocyte Esterase Neg Urine WBC (Auto) 1.0 Urine RBC (Auto) 1.0 U Epithel Cells (Auto) 2.0 Urine Mucus 2+ 08/23/21 00:20 WBC 21.6 H RBC 4.45 Hgb 13.7 Hct 42.3 MCV 95 MCH 31 MCHC 33 RDW 13.8 Plt Count 212 Add Manual Diff Complete Total Counted 100 Seg Neutrophils % Aerial Survey Technician Seg Neuts % (Manual) 92.0 H Band Neutrophils % 0 Lymphocytes % (Manual) 5.0 L Reactive Lymphs % (Man) 0 Monocytes % (Manual) 3.0 Eosinophils % (Manual) 0 Basophils % (Manual) 0 Metamyelocytes % 0 Myelocytes % 0 Promyelocytes % 0 Blast Cells % 0 Nucleated RBC % Not Reportable Seg Neutrophils # Man 19.9 H Band Neutrophils # 0.0 Lymphocytes # (Manual) 1.1 L Abs React Lymphs (Man) 0.0 Monocytes # (Manual) 0.6 Eosinophils # (Manual) 0.0 Basophils # (Manual) 0.0 Metamyelocytes # 0.0 Myelocytes # 0.0 Promyelocytes # 0.0 Blast Cells # 0.0 WBC Morphology Not Reportable Hypersegmented Neuts Not Reportable Hyposegmented Neuts Not Reportable Hypogranular Neuts Not Reportable Smudge Cells Not Reportable Toxic Granulation Not Reportable Toxic Vacuolation Not Reportable Dohle Bodies Not Reportable Pelger-Huet Anomaly Not Reportable Wilberto Rods Not Reportable Platelet Estimate Not Reportable Clumped Platelets Not Reportable Plt Clumps, EDTA Not Reportable Large Platelets Not Reportable Giant Platelets Not Reportable Platelet Satelliting Not Reportable Plt Morphology Comment Not Reportable RBC Morphology Normal Dimorphic RBCs Not Reportable Polychromasia Not Reportable Hypochromasia Not Reportable Poikilocytosis Not Reportable Anisocytosis Not Reportable Microcytosis Not Reportable Macrocytosis Not Reportable Spherocytes Not Reportable Pappenheimer Bodies Not Reportable Sickle Cells Not Reportable Target Cells Not Reportable Tear Drop Cells Not Reportable Ovalocytes Not Reportable Helmet Cells Not Reportable Cerrato-Belt Bodies Not Reportable Macarthur Rings Not Reportable Charlie Cells Not Reportable Bite Cells Not Reportable Crenated Cell Not Reportable Elliptocytes Not Reportable Acanthocytes (Spur) Not Reportable Rouleaux Not Reportable Hemoglobin C Crystals Not Reportable Schistocytes Not Reportable Malaria parasites Not Reportable Gregor Bodies Not Reportable Hem Pathologist Commnt No Sodium Potassium Chloride Carbon Dioxide Anion Gap BUN Creatinine Estimated GFR BUN/Creatinine Ratio Glucose Calcium Total Bilirubin AST ALT Alkaline Phosphatase Total Protein Albumin Albumin/Globulin Ratio Lipase HCG, Qual Urine Color Urine Turbidity Urine pH Ur Specific [place] Urine Protein Urine Glucose (UA) Urine Ketones Urine Blood Urine Nitrite Urine Bilirubin Urine Urobilinogen Ur Leukocyte Esterase Urine WBC (Auto) Urine RBC (Auto) U Epithel Cells (Auto) Urine Mucus
--- NOTE | 2021-08-23 16:28 | Event Note ---
Date: 08/23/21 GI was consulted for colitis and abdominal pain. Came to see patient in the ED but was told patient left AMA.
--- NOTE | 2021-08-23 18:19 | Discharge Summary ---
Providers - Providers Date of Admission: 08/23/21 04:16 Date of discharge: 08/23/21 Attending physician: GABRIELA HUMPHREY 08/23/21 04:16 Consult to Physician [CONS] Routine Comment: Consulting Provider: DENAE BASS Physician Instructions: Reason For Exam: Abdominal pain Primary care physician: [employer] Hospitalization Condition: Stable Disposition: LEFT AGAINST MEDICAL ADVICE Exam - Constitutional Vitals: Temp Pulse Resp BP Pulse Ox 98.2 F 72 19 121/52 96 08/23/21 14:13 08/23/21 14:13 08/23/21 14:13 08/23/21 14:13 08/23/21 14:13 Plan Follow up with: PRIMARY CARE, [Primary Care Provider] - 3-5 Days Forms: AMA Form
== END 2021-08-23 14:15 | disposition left against medical advice (07) | DRG 392 ==
LOC: ED 19:25 → 3A 08-23 04:16
PROVIDERS: ADMIT Hospitalist; ATTEND Internal Medicine
DX: K52.9 Noninfective gastroenteritis and colitis, unspecified (principal); R78.81 Bacteremia; D72.829 Elevated white blood cell count, unspecified; Z53.29 Procedure and treatment not carried out because of patient's decision for other reasons
CPT/HCPCS: 36415; 74177; 76705; 80053; 81001; 83690; 84703; 85007; 85025; 87040; 94640; 94644; G0378; J3490; J7070; J1100; J2270; J2405; J2543; J7030; Q9967